=== PATIENT | male | born 1985 | race Two or more races ===

== ENCOUNTER 2023-06-17 12:07 | Inpatient (IN) | payer SELFPAY ==
[~2023-06-17] VITALS: Ht 172.7 cm; Wt 72.6 kg
[2023-06-17] VITALS (11 sets, daily range): BP systolic 117–149; BP diastolic 79–103; PULSE 74–111; RESP 14–21; TEMP 98.9–99.4; O2SAT 95–99
[2023-06-17] MEDS ORDERED: ASPirin 325 MG TAB PO ONE (12:45)
[2023-06-17 13:12] LABS: Basophils # (auto) 0 10 ^3/uL (0-0.2); Basophils % (auto) 0.4 % (0.0-2.0); Eosinophils # (auto) 0.1 10 ^3/uL (0-0.8); Eosinophils % (auto) 0.6 % (0.0-7.0); Hematocrit 42.8 % (41.0-53.0); Hemoglobin 14.8 g/dL (13.5-17.5); Lymphocytes # (auto) 2.5 10 ^3/uL (0.4-5.4); Lymphocytes % (auto) 23.6 % (10.0-50.0); Mean Corpuscular Hemoglobin 33.3 pg (28.0-32.0); Mean Corpuscular Hgb Conc. 34.7 g/dL (32.0-36.0); Mean Corpuscular Volume 96.2 fL (80.0-100.0); Monocytes % (auto) 9.2 % (0.0-12.0); Neutrophils # (auto) 6.9 10 ^3/uL (1.6-8.6); Neutrophils % (auto) 66.2 % (37.0-80.0); Red Blood Cells 4.45 10^6/uL (4.5-5.90); Red Cell Distribution Width 12.4 % (11.8-14.3); White Blood Cell 10.4 10^3/uL (4.4-10.8)
[2023-06-17 13:16] LABS: INR 1.05 (0.9-1.15); Partial Thromboplastin Time 25.6 SEC (24.5-34.5); Potassium 4.1 mmol/L (3.5-5.1)
[2023-06-17 13:22] LABS: Albumin 3.3 g/dL (3.4-5.0); BUN/Creatinine Ratio 11.8 (10.0-20.0); Bilirubin, Total 0.3 mg/dL (0.2-1.0); Calcium 8.8 mg/dL (8.5-10.1); Magnesium 2.9 mg/dL (1.6-2.6); Total Protein 7.8 g/dL (6.4-8.2)
[2023-06-17] MEDS ORDERED: HEPARIN SODIUM (PORCINE) 5000 UNITS/ML 1ML VIAL IV ONE (13:30)
[2023-06-17] MEDS ORDERED: SODIUM CHL 0.9% 50 ML ONE (14:38)
[2023-06-17] MEDS ORDERED: fentaNYL CITRATE 100 MCG/2 ML VL ONE (14:38)
[2023-06-17] MEDS ORDERED: MIDAZOLAM HCL 2MG/2ML 2ml VIAL (1mg/ml) ONE (14:38)
[2023-06-17] MEDS ORDERED: ANGIOMAX 250 MG VIAL IV ONE (14:38)
[2023-06-17] MEDS ORDERED: LIDOCAINE 2%HCL (LOCAL ANESTH.) INJ 20ML MDV ONE (14:38)
[2023-06-17] MEDS ORDERED: VERAPAMIL 2.5MG/ML INJ 2ML VIAL IV ONE (14:41)
[2023-06-17] MEDS ORDERED: IOHEXOL 350 MG/ML 100ML IJ ONE (15:11)
[2023-06-17] MEDS ORDERED: EPTIFIBATIDE INJ (2MG/ML) 10ML VIAL IV ONE (15:25)
[2023-06-17] MEDS ORDERED: TICAGRELOR 90 MG TAB ONE (15:35)
[2023-06-17] MEDS ORDERED: METF-370 PO (16:14)
[2023-06-17] MEDS ORDERED: MORPHINE SULFATE INJ 2 MG/ml SYRG IV PRN (16:15)
[2023-06-17] MEDS ORDERED: DOCUSATE SOD 100 MG CAP PO PRN (16:15)
[2023-06-17] MEDS ORDERED: HYDROcodone-ACET 5/325MG TAB PO PRN (16:15)
[2023-06-17] MEDS ORDERED: LORazepam 0.5 MG TAB PO PRN (16:15)
[2023-06-17] MEDS ORDERED: ACETAMINOPHEN 325 MG TAB PO PRN (16:15)
[2023-06-17] MEDS ORDERED: ONDANSETRON HCL 4 MG/2 ML VIAL IV PRN (16:15)
[2023-06-17] MEDS ORDERED: NITROGLYCERIN 0.4 MG SL TAB SL PRN (16:15)
[2023-06-17] MEDS ORDERED: DEXTROSE (50%) 50ML SYRG IV PRN (16:15)
[2023-06-17] MEDS ORDERED: HYDROmorphone HCL 2 MG/ML VL/or syr IV PRN (16:15)
[2023-06-17] MEDS: InsuLIN REG 1unit/0.01ml Soln (100units/ml) SC SCH ×2 (17:00→21:37)
[2023-06-17] MEDS: ACCU-CHEK COMFORT CURVE STRIP VI SCH ×2 (17:00→21:39)
[2023-06-17] MEDS: ATORVASTATIN 20 MG TAB PO SCH (18:28)
[2023-06-17 20:21] LABS: Urine Bacteria FEW /hpf (None Seen); Urine Blood Negative /uL (Negative); Urine Mucus FEW (None Seen); Urine WBC 1 /hpf (0 - 3)
[2023-06-17 20:29] LABS: Urine Specific Gravity > 1.050 (1.001-1.035)
[2023-06-17 20:49] LABS: Alcohol, Urine < 3.0 mg/dL (0-10); Amphetamine Screen, Urine NEGATIVE (NEGATIVE); Benzodiazephine Screen, Urine POSITIVE (NEGATIVE); Cannabinoid Screen, Urine NEGATIVE (NEGATIVE); Cocaine Screen, Urine NEGATIVE (NEGATIVE)
[2023-06-17 20:57] LABS: Barbiturate Scree,Urine NEGATIVE (NEGATIVE); Opiate Scree,Urine NEGATIVE (NEGATIVE); Phencyclidine Screen, Urine NEGATIVE (NEGATIVE)
[2023-06-17] MEDS ORDERED: CLOPIDOGREL BISULFATE 75 MG TAB PO ONE (21:00)
[2023-06-17] MEDS ORDERED: LORazepam 2MG/ML-1ML VIAL IV PRN (21:15)
[2023-06-17 21:20] LABS: Cholesterol 169 mg/dL (< 200)
[2023-06-17 21:24] LABS: HDL Cholesterol 30 mg/dL (40-59); LDL Cholesterol 125 mg/dL (< 100); Triglycerides 182 mg/dL (< 150)
[2023-06-17] MEDS: CARVEDILOL 3.125 MG TAB PO SCH (21:33)
[2023-06-17] MEDS: SODIUM CHLOR 0.9% PF (SALINE LOCK) 10ML VIAL/SYR IV SCH (21:39)
[2023-06-17] MEDS ORDERED: ATORVASTATIN 20 MG TAB PO SCH (22:00)
[2023-06-18] VITALS (7 sets, daily range): BP systolic 109–117; BP diastolic 73–84; PULSE 59–108; RESP 17–20; TEMP 98.6–101.2; O2SAT 95–100
[2023-06-18] MEDS ORDERED: SALINE 0.65 % NASAL SPRAY 45ML BOTTLE EACHNOSTRI PRN (01:00)
[2023-06-18 06:12] LABS: Potassium 3.9 mmol/L (3.5-5.1)
[2023-06-18 06:15] LABS: Basophils # (auto) 0.1 10 ^3/uL (0-0.2); Basophils % (auto) 0.5 % (0.0-2.0); Eosinophils # (auto) 0.1 10 ^3/uL (0-0.8); Eosinophils % (auto) 0.6 % (0.0-7.0); Hematocrit 40.7 % (41.0-53.0); Hemoglobin 14.3 g/dL (13.5-17.5); Lymphocytes # (auto) 3.3 10 ^3/uL (0.4-5.4); Lymphocytes % (auto) 27.8 % (10.0-50.0); Mean Corpuscular Hemoglobin 33.6 pg (28.0-32.0); Mean Corpuscular Hgb Conc. 35.1 g/dL (32.0-36.0); Mean Corpuscular Volume 95.5 fL (80.0-100.0); Monocytes # (auto) 1.3 10 ^3/uL (0-1.3); Monocytes % (auto) 10.5 % (0.0-12.0); Neutrophils # (auto) 7.2 10 ^3/uL (1.6-8.6); Neutrophils % (auto) 60.6 % (37.0-80.0); Red Blood Cells 4.26 10^6/uL (4.5-5.90); Red Cell Distribution Width 12.2 % (11.8-14.3); White Blood Cell 11.9 10^3/uL (4.4-10.8)
[2023-06-18] MEDS: InsuLIN REG 1unit/0.01ml Soln (100units/ml) SC SCH ×4 (06:16→21:14)
[2023-06-18] MEDS: ACCU-CHEK COMFORT CURVE STRIP VI SCH ×4 (06:16→22:00)
[2023-06-18] MEDS: SODIUM CHLOR 0.9% PF (SALINE LOCK) 10ML VIAL/SYR IV SCH ×3 (06:17→22:00)
[2023-06-18 06:19] LABS: BUN/Creatinine Ratio 10.8 (10.0-20.0); Bilirubin, Total 0.7 mg/dL (0.2-1.0); Calcium 8.8 mg/dL (8.5-10.1); Total Protein 7.4 g/dL (6.4-8.2)
[2023-06-18] MEDS ORDERED: ASPirin 81 mg TAB PO SCH (10:00)
[2023-06-18] MEDS ORDERED: LISINOPRIL 10 MG TAB PO SCH (10:00)
[2023-06-18] MEDS ORDERED: CLOPIDOGREL BISULFATE 75 MG TAB PO SCH (10:00)
[2023-06-18] MEDS: ASPirin 81 mg TAB PO SCH (10:09)
[2023-06-18] MEDS: CLOPIDOGREL BISULFATE 75 MG TAB PO SCH (10:10)
[2023-06-18] MEDS: CARVEDILOL 3.125 MG TAB PO SCH ×2 (10:10→21:17)
[2023-06-18] MEDS: ATORVASTATIN 20 MG TAB PO SCH (10:11)
[2023-06-19] VITALS (12 sets, daily range): BP systolic 101–132; BP diastolic 62–92; PULSE 86–106; RESP 14–23; TEMP 37.1; O2SAT 93–100
[2023-06-19] MEDS: SODIUM CHLOR 0.9% PF (SALINE LOCK) 10ML VIAL/SYR IV SCH ×2 (06:17→15:51)
[2023-06-19] MEDS: ACCU-CHEK COMFORT CURVE STRIP VI SCH ×3 (06:17→17:00)
[2023-06-19] MEDS: InsuLIN REG 1unit/0.01ml Soln (100units/ml) SC SCH ×3 (06:17→17:00)
[2023-06-19 09:30] LABS: Basophils # (auto) 0 10 ^3/uL (0-0.2); Basophils % (auto) 0.4 % (0.0-2.0); Eosinophils # (auto) 0.1 10 ^3/uL (0-0.8); Eosinophils % (auto) 0.6 % (0.0-7.0); Hematocrit 43.3 % (41.0-53.0); Hemoglobin 15.1 g/dL (13.5-17.5); Lymphocytes # (auto) 3.2 10 ^3/uL (0.4-5.4); Lymphocytes % (auto) 25.1 % (10.0-50.0); Mean Corpuscular Hgb Conc. 34.8 g/dL (32.0-36.0); Mean Corpuscular Volume 94.9 fL (80.0-100.0); Monocytes # (auto) 1.1 10 ^3/uL (0-1.3); Monocytes % (auto) 8.7 % (0.0-12.0); Neutrophils # (auto) 8.3 10 ^3/uL (1.6-8.6); Neutrophils % (auto) 65.2 % (37.0-80.0); Red Blood Cells 4.56 10^6/uL (4.5-5.90); Red Cell Distribution Width 12.2 % (11.8-14.3); White Blood Cell 12.7 10^3/uL (4.4-10.8)
[2023-06-19 09:45] LABS: Albumin 3.2 g/dL (3.4-5.0); Calcium 8.6 mg/dL (8.5-10.1); Potassium 4.4 mmol/L (3.5-5.1)
[2023-06-19] MEDS ORDERED: fentaNYL CITRATE 100 MCG/2 ML VL IV ONE (09:45)
[2023-06-19] MEDS ORDERED: LIDOCAINE VISCOUS 2% 15ML UD MT ONE (09:45)
[2023-06-19] MEDS ORDERED: MIDAZOLAM HCL 2MG/2ML 2ml VIAL (1mg/ml) IV ONE (09:45)
[2023-06-19 09:49] LABS: BUN/Creatinine Ratio 11.8 (10.0-20.0); Bilirubin, Total 0.6 mg/dL (0.2-1.0)
[2023-06-19] MEDS ORDERED: CARVEDILOL 3.125 MG TAB PO SCH (10:00)
[2023-06-19] MEDS: ATORVASTATIN 20 MG TAB PO SCH (10:00)
[2023-06-19] MEDS: CLOPIDOGREL BISULFATE 75 MG TAB PO SCH ×2 (10:00→18:13)
[2023-06-19] MEDS: ASPirin 81 mg TAB PO SCH ×2 (10:00→18:13)
[2023-06-19] MEDS ORDERED: LISINOPRIL 10 MG TAB PO SCH (10:00)
[2023-06-19] MEDS ORDERED: ATOR20TA50 PO (13:18)
[2023-06-19] MEDS ORDERED: ERGO1CAP23 PO (13:18)
[2023-06-19] MEDS ORDERED: EMPA1TAB3 PO (13:18)
[2023-06-19] MEDS ORDERED: LISI2.5T47 PO (13:18)
[2023-06-19] MEDS ORDERED: CAR3125T PO (13:18)
[2023-06-19] MEDS ORDERED: ASPI-325 PO (13:18)
[2023-06-19] MEDS ORDERED: CLOP75TA70 PO (13:18)
[2023-06-19] MEDS ORDERED: METF-372 PO (13:18)
== END 2023-06-19 18:50 | disposition home or self-care (01) | DRG 246 ==
LOC: ER 12:07 → EDBD 12:07 → TELE 16:13 → TELE-EAST 17:00
PROVIDERS: ADMIT Internal Medicine
PROC: 027034Z Dilation of Coronary Artery, One Artery with Drug-eluting Intraluminal Device, Percutaneous Approach (ICD-10-PCS; principal; 2023-06-17)
PROC: 02C03ZZ Extirpation of Matter from Coronary Artery, One Artery, Percutaneous Approach (ICD-10-PCS; 2023-06-17)
PROC: B24BZZ4 Ultrasonography of Heart with Aorta, Transesophageal (ICD-10-PCS; 2023-06-17)
PROC: 3E073PZ Introduction of Platelet Inhibitor into Coronary Artery, Percutaneous Approach (ICD-10-PCS; 2023-06-17)
PROC: B211YZZ Fluoroscopy of Multiple Coronary Arteries using Other Contrast (ICD-10-PCS; 2023-06-17)
DX: I21.4 Non-ST elevation (NSTEMI) myocardial infarction (principal); I63.9 Cerebral infarction, unspecified; R47.01 Aphasia; I50.20 Unspecified systolic (congestive) heart failure; E11.9 Type 2 diabetes mellitus without complications; F17.200 Nicotine dependence, unspecified, uncomplicated; R29.810 Facial weakness; I11.9 Hypertensive heart disease without heart failure; E55.9 Vitamin D deficiency, unspecified; I25.10 Atherosclerotic heart disease of native coronary artery without angina pectoris; E78.5 Hyperlipidemia, unspecified; R56.9 Unspecified convulsions; Z79.02 Long term (current) use of antithrombotics/antiplatelets; Z79.82 Long term (current) use of aspirin; Z79.899 Other long term (current) drug therapy; Z82.49 Family history of ischemic heart disease and other diseases of the circulatory system; Z83.3 Family history of diabetes mellitus; Z86.73 Personal history of transient ischemic attack (TIA), and cerebral infarction without residual deficits
CPT/HCPCS: 36415; 70450; 70551; 71045; 80053; 80061; 80307; 81001; 82306; 82962; 83036; 83735; 83880; 84443; 84484; 85025; 85610; 85730; 93005; 93306; 93312; 95819; 99152; 99153; 99291; C1874; G0378; J1815; J2250; J2405